=== PATIENT | male | born 1960 | race Caucasian/White ===

== ENCOUNTER → 2024-07-16 07:52 | Outpatient (REF) | payer OTHER, SELFPAY | LOC: HWRAD 07:52 | PROVIDERS: ATTENDING PHYSICIAN Family Medicine | DX: E11.9 Type 2 diabetes mellitus without complications (principal); R10.9 Unspecified abdominal pain; R79.89 Other specified abnormal findings of blood chemistry | CPT/HCPCS: 76700 ==